=== PATIENT | female | born 1990 | race Caucasian/White ===

== ENCOUNTER 2017-08-14 23:15 | Inpatient (IN) | payer OTHER ==
[~2017-08-14] VITALS: Ht 172.7 cm; Wt 135.1 kg
[~2017-08-14 23:15] MED LIST: ATARAX,VISTARIL50 MG PO; CLEOCIN300 MG PO; FLEXERIL10 MG PO; MOBIC15 MG PO; NAPROSYN500 MG PO; PEN-VEE K,VEET250 MG PO; TRI-ESTARYLLA1 EACH PO
[2017-08-14 23:35] VITALS: BP 138/86
[2017-08-15] VITALS (22 sets, daily range): BP systolic 111–154; BP diastolic 56–88
[2017-08-15 00:38] LABS: EOSINOPHIL (%) 0.4 % (0-5); HEMATOCRIT 34.7 % (36.0-46.0); IMMATURE GRANULOCYTE (%) 0.5 % (0.0-0.7); INSTRUMENT ABS NEUTROPHIL CT 6.2 K/uL; LYMPHOCYTE COUNT 1.2 K/uL (1.0-2.8); MCH 29.1 PG (29.0-34.0); MCHC 33.4 G/DL (30.0-36.0); MEAN PLAT.VOLUME 11.4 uM^3 (9.5-12.4); MONOCYTE COUNT 0.8 K/uL (0-0.8); NEUTROPHIL (%) 74.3 % (45-76); NEUTROPHIL COUNT 6.2 K/uL (1.8-6.4); PLATELET COUNT 228 K/uL (156-360); RBC DIS.WIDTH-CV 13.5 % (11.8-14.6); RBC DIS.WIDTH-SD 42.7 % (39-53); RED BLOOD COUNT 3.99 M/uL (3.80-5.20); WHITE BLOOD COUNT 8.4 K/uL (4.1-10.2)
[2017-08-15] MEDS ORDERED: IBUPROFEN800 MG PO (10:51)
[2017-08-17 07:40] VITALS: BP 125/81
[2017-08-18] MEDS ORDERED: MOTRIN600 MG PO (19:25)
== END 2017-08-17 17:54 | disposition home or self-care (01) | DRG 775 ==
LOC: LDRP-OP 23:15 → 2WEST 23:16 → LDRP-OP 09-20 09:10
PROVIDERS: Advanced Practice Midwife
PROC: 10E0XZZ Delivery of Products of Conception, External Approach (ICD-10-PCS; principal; 2017-08-15)
PROC: 00HU33Z Insertion of Infusion Device into Spinal Canal, Percutaneous Approach (ICD-10-PCS; principal; 2017-08-15)
PROC: 10907ZC Drainage of Amniotic Fluid, Therapeutic from Products of Conception, Via Natural or Artificial Opening (ICD-10-PCS; principal; 2017-08-15)
PROC: 0HQ9XZZ Repair Perineum Skin, External Approach (ICD-10-PCS; principal; 2017-08-15)
PROC: 3E0R3BZ Introduction of Anesthetic Agent into Spinal Canal, Percutaneous Approach (ICD-10-PCS; principal; 2017-08-15)
DX: O99.824 Streptococcus B carrier state complicating childbirth (principal); O70.0 First degree perineal laceration during delivery; O99.284 Endocrine, nutritional and metabolic diseases complicating childbirth; E72.12 Methylenetetrahydrofolate reductase deficiency; Z3A.39 39 weeks gestation of pregnancy; Z37.0 Single live birth; O99.214 Obesity complicating childbirth; E66.9 Obesity, unspecified; Z68.37 Body mass index [BMI] 37.0-37.9, adult; Z87.891 Personal history of nicotine dependence
CPT/HCPCS: 85025; C1755; G0378; J2405; J2540; J7120

== ENCOUNTER 2017-08-18 16:09 | Emergency (ER) | payer OTHER ==
[~2017-08-18] VITALS: Ht 172.7 cm; Wt 130.8 kg
[~2017-08-18 16:09] MED LIST changes: +IBUPROFEN800 MG PO
[2017-08-18] MEDS ORDERED: MOTRIN600 MG PO (19:25)
[2017-08-18 19:41] VITALS: BP 136/90
== END 2017-08-18 19:45 | disposition home or self-care (01) ==
LOC: EME 16:09
DX: O89.4 Spinal and epidural anesthesia-induced headache during the puerperium (principal); Z87.891 Personal history of nicotine dependence
CPT/HCPCS: 70450; 99281; 99284; J1885; J2765; J7030

== ENCOUNTER 2017-08-22 17:52 | Emergency (ER) | payer OTHER ==
[~2017-08-22] VITALS: Ht 172.7 cm; Wt 127.0 kg
[~2017-08-22 17:52] MED LIST changes: +MOTRIN600 MG PO
[2017-08-22 21:34] LABS: HEMATOCRIT 34.9 % (36.0-46.0); MCH 28.4 PG (29.0-34.0); MCHC 32.1 G/DL (30.0-36.0); MCV 88.4 FL (83-99); MEAN PLAT.VOLUME 10.8 uM^3 (9.5-12.4); PLATELET COUNT 285 K/uL (156-360); RBC DIS.WIDTH-CV 13.2 % (11.8-14.6); RBC DIS.WIDTH-SD 42.9 % (39-53); RED BLOOD COUNT 3.95 M/uL (3.80-5.20); WHITE BLOOD COUNT 7.4 K/uL (4.1-10.2)
[2017-08-22 21:45] LABS: CHLORIDE 108 mEq/L (99-109); POTASSIUM 3.7 mEq/L (3.7-5.4); SODIUM 139 mEq/L (136-147)
[2017-08-22 21:47] LABS: GLUCOSE 82 mg/dL (70-99)
[2017-08-22 21:48] LABS: ANION GAP 8 MEQ/L (2-14)
[2017-08-22 21:49] LABS: TOTAL BILIRUBIN 0.4 mg/dL (0.0-1.0)
[2017-08-22 21:51] LABS: ALKALINE PHOSPHATASE 70 IU/L (3-129); GFR ESTIMATE (CALCULATED) > 59 mL/min/
[2017-08-22 21:52] LABS: UREA NITROGEN (BUN) 12 mg/dL (9-23)
[2017-08-22 23:06] LABS: ADD MIUA? YES; BILIRUBIN NEGATIVE; BLOOD LARGE; COLOR STRAW ((YELLOW)); GLUCOSE (STRIP) NEGATIVE; KETONES NEGATIVE; LEUKOCYTES LARGE; NITRITE NEGATIVE; PROTEIN (STRIP) NEGATIVE; UROBILINOGEN 0.2 MG/DL (0.2-1.0)
[2017-08-22 23:17] LABS: BACTERIA RARE /HPF; EPITHELIAL CELLS RARE /HPF; MUCUS TRACE /LPF; UCUL ADDED? YES; WHITE BLOOD CELLS 40-50 /HPF (0-5)
[2017-08-23] MEDS ORDERED: NORMODYNE,TRAN200 MG PO (00:31)
[2017-08-23 00:38] VITALS: BP 149/87
== END 2017-08-23 00:42 | disposition home or self-care (01) ==
LOC: EME 17:52
PROVIDERS: Physician Assistant
PROC: 3E0S3GC Introduction of Other Therapeutic Substance into Epidural Space, Percutaneous Approach (ICD-10-PCS; principal; 2017-08-22)
DX: O16.5 Unspecified maternal hypertension, complicating the puerperium (principal); O89.4 Spinal and epidural anesthesia-induced headache during the puerperium; Z87.891 Personal history of nicotine dependence
CPT/HCPCS: 80053; 81003; 85027; 87086; 99281; 99284; J2765; J7030